=== PATIENT | female | born 1945 | race Caucasian/White ===

== ENCOUNTER 2016-07-09 12:59 | Emergency (ER) | payer OTHER ==
[~2016-07-09] VITALS: Ht 160 cm; Wt 119.2 kg
[~2016-07-09 12:59] MED LIST: ADVAIR 250/501 DISK IH; CARVEDILOL3.125 MG PO; CELEBREX200 MG PO; CIPROFLOXACIN500 M1 PO; COZAAR25 MG PO; DILTIAZEM 24HR120 MG PO; HYDROXYZINE HCL25 MG PO; LOSARTAN POTASS50 MG PO; MECLIZINE HCL12.5 M1 PO; OSTERA TABLET1 EACH PO; PRESERVISION T1 EACH PO; PROTONIX40 MG PO; PROVENTIL,200 INHALA IH; RESTASIS 01 DROP/0.4 BOTH EYES; TOPROL XL25 MG PO; TYLENOL REGULA325 MG PO; VITAMIN D1000 INTUN PO; VITAMIN D31000 UNI2 PO
[2016-07-09 14:12] LABS: ADD MIUA? YES; BILIRUBIN NEGATIVE; BLOOD NEGATIVE; COLOR STRAW ((YELLOW)); GLUCOSE (STRIP) NEGATIVE; KETONES NEGATIVE; LEUKOCYTES SMALL; NITRITE NEGATIVE; PROTEIN (STRIP) NEGATIVE; SPECIFIC GRAVITY 1.006 (1.000-1.030); UROBILINOGEN 0.2 MG/DL (0.2-1.0)
[2016-07-09 14:18] LABS: BACTERIA RARE /HPF; EPITHELIAL CELLS RARE /HPF; MUCUS TRACE /LPF; RED BLOOD CELLS 0-5 /HPF (0-5)
[2016-07-09] MEDS ORDERED: KEFLEX500 MG PO (14:59)
[2016-07-09] MEDS ORDERED: TOVIAZ8 MG PO (15:36)
[2016-07-09] MEDS ORDERED: ELAVIL10 MG PO (15:36)
[2016-07-09] MEDS ORDERED: AMLODIPINE BESY10 MG PO (15:36)
[2016-07-09 15:44] VITALS: BP 128/83
== END 2016-07-09 15:57 | disposition home or self-care (01) ==
LOC: EME 12:59
PROVIDERS: Emergency Medicine
DX: N39.0 Urinary tract infection, site not specified (principal); R33.9 Retention of urine, unspecified; J45.909 Unspecified asthma, uncomplicated; J44.9 Chronic obstructive pulmonary disease, unspecified; I10 Essential (primary) hypertension; K21.9 Gastro-esophageal reflux disease without esophagitis; Z87.891 Personal history of nicotine dependence
CPT/HCPCS: 81003; 99281; 99284

== ENCOUNTER 2017-07-21 12:57 | Emergency (ER) | payer OTHER, MEDICARE ==
[~2017-07-21] VITALS: Ht 160 cm; Wt 118.1 kg
[~2017-07-21 12:57] MED LIST changes: +AMLODIPINE BESY10 MG PO; +ELAVIL10 MG PO; +KEFLEX500 MG PO; +TOVIAZ8 MG PO
[2017-07-21 14:07] LABS: HEMATOCRIT 42.5 % (36.0-46.0); HEMOGLOBIN 13.6 G/DL (11.9-15.5); MCH 27.9 PG (29.0-34.0); MCV 87.1 FL (83-99); PLATELET COUNT 259 K/uL (156-360); RBC DIS.WIDTH-CV 14.3 % (11.8-14.6); RBC DIS.WIDTH-SD 45.8 % (39-53); RED BLOOD COUNT 4.88 M/uL (3.80-5.20); WHITE BLOOD COUNT 6.4 K/uL (4.1-10.2)
[2017-07-21 14:19] LABS: CHLORIDE 111 mEq/L (99-109); POTASSIUM 3.9 mEq/L (3.7-5.4); SODIUM 143 mEq/L (136-147)
[2017-07-21 14:20] LABS: GLUCOSE 107 mg/dL (70-99)
[2017-07-21 14:24] LABS: CREATININE 0.7 mg/dL (0.6-1.3); GFR ESTIMATE (CALCULATED) > 59 mL/min/
[2017-07-21 14:25] LABS: UREA NITROGEN (BUN) 14 mg/dL (9-23)
[2017-07-21 14:30] LABS: TROP-I INTERPRETATION NEGATIVE; TROPONIN-I 0.02 ng/mL (0.0-0.30)
[2017-07-21] MEDS ORDERED: AMLODIPINE BESYL5 MG PO (14:36)
[2017-07-21] MEDS ORDERED: ALLEGRA ALLERG180 MG PO (14:40)
[2017-07-21] MEDS ORDERED: FLONASE16 G1 BOTH NARES (14:41)
[2017-07-21] MEDS ORDERED: ALOE VERA25 MG PO (14:44)
[2017-07-21 18:12] LABS: TROP-I INTERPRETATION NEGATIVE; TROPONIN-I < 0.01 ng/mL (0.0-0.30)
[2017-07-21] MEDS ORDERED: ATIVAN0.5 MG PO (18:17)
[2017-07-21 18:34] VITALS: BP 149/79
== END 2017-07-21 18:37 | disposition home or self-care (01) ==
LOC: EME 12:57
PROVIDERS: Nurse Practitioner Family
DX: R00.2 Palpitations (principal); I25.10 Atherosclerotic heart disease of native coronary artery without angina pectoris; R91.8 Other nonspecific abnormal finding of lung field; I10 Essential (primary) hypertension; K21.9 Gastro-esophageal reflux disease without esophagitis; J44.9 Chronic obstructive pulmonary disease, unspecified; Z79.51 Long term (current) use of inhaled steroids; Z87.891 Personal history of nicotine dependence; Z87.19 Personal history of other diseases of the digestive system; Z87.448 Personal history of other diseases of urinary system; Z90.49 Acquired absence of other specified parts of digestive tract; Z90.710 Acquired absence of both cervix and uterus; Z91.040 Latex allergy status; Z91.048 Other nonmedicinal substance allergy status
CPT/HCPCS: 71046; 71275; 80048; 84484; 85027; 93005; 99281; 99285; J2060; J7030